=== PATIENT | female | born 1990 | race Caucasian/White ===

== ENCOUNTER 2021-03-12 22:33 | Emergency (ER) | payer MEDICAID, OTHER ==
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
[2021-03-13] MEDS ORDERED: Ibuprofen 600 MG Tab PO ONE (01:00)
--- NOTE | 2021-03-13 08:37 | CR ---
Right knee: 4 views of the right knee were obtained. Comparison: No prior knee study is available. No discrete joint effusion is seen. Small sclerotic areas are noted within the lateral knee compatible with bone islands. No discrete fracture or other abnormality is appreciated. Impression: 1. Nothing acute is definitely appreciated on right knee study. 2. If patient continues to remain symptomatic, MRI could then be considered. Diagnostic code #1
== END 2021-03-13 01:35 | disposition home or self-care (01) ==
LOC: JD.ED 22:33
DX: M25.561 Pain in right knee (principal); E66.9 Obesity, unspecified; Z68.33 Body mass index [BMI] 33.0-33.9, adult; Z72.0 Tobacco use; Z88.5 Allergy status to narcotic agent
CPT/HCPCS: 73564; 99283; A9270

== ENCOUNTER 2021-07-30 18:24 | Emergency (ER) | payer OTHER ==
--- NOTE | 2021-07-30 20:45 | EDM.PDOC ---
ED HPI GENERAL MEDICAL PROBLEM - General Chief Complaint: Skin Complaint Stated Complaint: INFECTION ON RIGHT SIDE Time Seen by Provider: 07/30/21 20:20 Source of Information: Reports: Patient, Family (Mother) History Limitations: Reports: No Limitations - History of Present Illness INITIAL COMMENTS - FREE TEXT/NARRATIVE: Mrs. Vaz is a pleasant 31-year-old woman who now presents the ED stating that she underwent a liposuction on 01/24/2021, in [place], and that one of the surgical wounds, to the lower far right side of her abdomen, has not healed. She states that the wound has had a greenish discoloration for months. She states that she did not follow up with her Surgeon, although she did call his office, and it was suggested that she be put on an antibiotic. She went to the walk-in clinic about 1 week ago, where a culture was obtained, and reportedly was negative, however, she was prescribed clindamycin, which she is still on. She states that the clindamycin has given her watery diarrhea. She has not seen her PCP about this issue. At triage, the patient was found to be hemodynamically stable, afebrile, saturating 98% on room air. She appears to be comfortable, in no acute distress. Other than the lower right abdominal wound, the patient denies having a recent fever, chills, sore throat, ear pain, nasal or sinus congestion, cough, dyspnea, chest pain, palpitations, nausea, vomiting, constipation, diarrhea, abdominal pain, urinary symptoms, recent weight gain or weight loss, recent bloody bowel movements or black bowel movements, recent joint aches, headaches, or rashes. The patient's PCP is LISSETT Reynoso. Her Line Fixer is Dr. Essie Valerio. She has not received a COVID vaccination, nor an influenza vaccination this season. Right Hip Pain Score (Numeric/FACES): 7 - Related Data Allergies Allergy/AdvReac Type Severity Reaction Status Date / Time latex Allergy Itching Verified 07/30/21 19:01 morphine Allergy Difficulty Verified 07/30/21 19:01 Breathing Home Meds: Home Meds . [No Known Home Meds] 07/30/21 [History] Past Medical History Endocrine/Metabolic History: Reports: Obesity/BMI 30+ - Past Surgical History Female Surgical History: Reports: Tubal Ligation Oncologic Surgical History: Reports: Biopsy of Breast (right, benign) Dermatological Surgical History: Reports: Plastic Surgical Reconstruction/Repair (Liposuction 01/24/2021, in [place]) Social & Family History - Tobacco Use Tobacco Use Status *Q: Never Tobacco User Years of Tobacco use: 18 Packs/Tins Daily: 0.5 Tobacco Use Comment: Started smoking 2003 - Caffeine Use Caffeine Use: Reports: Coffee, Energy Drinks - Alcohol Use Alcohol Use History: Yes Alcohol Use Frequency: Socially (occasionally to excess) - Recreational Drug Use Recreational Drug Use: No - Living Situation & Occupation Living situation: Reports: , with Spouse, with Family (5 kids) Occupation: Employed ([employer]) ED ROS GENERAL - Review of Systems Review Of Systems: Comprehensive ROS is negative, except as noted in HPI. ED EXAM, SKIN/RASH Exam: See Below Exam Limited By: No Limitations General Appearance: Alert, WD/WN, No Apparent Distress Skin: Other (There is an approximately 2.5 cm purplish oval lesion to the far lower right abdomen with an approximately 1.5 cm oval area of exposed subcutaneous tissue. The wound not appear to be infected. No obvious depth or tunneling of the wound, despite an attempt at probing with a cotton tip swab. The wo) Course - Vital Signs Last Recorded V/S: Last Vital Signs Temp 37.5 C 07/30/21 18:54 Pulse 86 07/30/21 18:54 Resp 16 07/30/21 18:54 BP 129/88 07/30/21 18:54 Pulse Ox 98 07/30/21 18:54 - Re-Assessments/Exams Free Text/Narrative Re-Assessment/Exam: 07/30/21 20:40 It is unclear why the surgical wound over the patient's right pelvic area has not yet healed, unless the patient has allowed it to become dirty, or keeps wiping off the fibroblasts. There is no suggestion of an infection, the patient states that it looks no different now than when she was seen at the walk-in clinic last week, therefore I am recommending that she discontinue the remaining clindamycin. Going forward, I recommended that she keep the wound clean with ordinary soap and water when she bathes, pat dry, then cover with a sterile nonstick dressing, daily. I will refer her to Dr. Belle for further evaluation. Dr. Belle may recommend that the patient apply a thin smear of bacitracin ointment, but I will leave that to her. 07/30/21 21:16 Notified that the patient is requesting a note to be off work. She has been dealing with this issue for 7 months, and nothing acutely changed, therefore I do not see a medical indication for note to be off work, however, that is most likely the reason why she came to the ED tonight. Departure - Departure Time of Disposition: 20:42 Disposition: Home, Self-Care 01 Condition: Good Clinical Impression: Nonhealing surgical wound - Discharge Information *PRESCRIPTION DRUG MONITORING PROGRAM REVIEWED*: Not Applicable *COPY OF PRESCRIPTION DRUG MONITORING REPORT IN PATIENT EMILY: Not Applicable Referrals: Jennifer Boothe PA-C [Primary Care Provider] - Chelsey Wagner MD [Physician] - Essie Valerio MD [Physician] - Forms: ED Department Discharge, ED Return to Work/School Form Additional Instructions: You were seen in the emergency room for a nonhealing surgical wound over to your far right abdomen. On examination, the wound does not appear to be infected. It is unclear why it has not yet healed. We recommend that you discontinue the clindamycin that you were prescribed last week. Throw the remaining capsules into the trash - do not flush them down the toilet or wash them down the drain. Keep the wound clean with ordinary soap and water when you bathe. Pat dry, then cover with a sterile nonstick dressing, daily. Please follow-up with the Surgeon Dr. Chelsey Wagner at the next available appointment, for further evaluation. If any other problems, please do not hesitate to return to the ER. Sepsis Event Note (ED) - Evaluation Sepsis Screening Result: No Definite Risk
== END 2021-07-30 21:15 | disposition home or self-care (01) ==
LOC: JD.ED 18:24
DX: T81.30XA Disruption of wound, unspecified, initial encounter (principal); E66.9 Obesity, unspecified; Z68.30 Body mass index [BMI] 30.0-30.9, adult; Z91.040 Latex allergy status; Z88.5 Allergy status to narcotic agent
CPT/HCPCS: 87070; 87075; 87077; 87186; 87205; 99283

== ENCOUNTER 2022-01-07 03:01 | Emergency (ER) | payer OTHER ==
[2022-01-07] MEDS ORDERED: Ketorolac 15 MG/ML SDV IM ONE (03:18)
== END 2022-01-07 04:15 | disposition home or self-care (01) ==
LOC: JD.ED 03:01
DX: M25.561 Pain in right knee (principal); E66.9 Obesity, unspecified; Z68.30 Body mass index [BMI] 30.0-30.9, adult; Z88.5 Allergy status to narcotic agent; Z91.040 Latex allergy status
CPT/HCPCS: 73562; 96372; 99283; J1885; 99282

== ENCOUNTER 2022-05-15 14:08 | Emergency (ER) | payer OTHER | END 2022-05-15 18:18 | disposition home or self-care (01) | LOC: JD.ED 14:08 | DX: H53.131 Sudden visual loss, right eye (principal); R51.9 Headache, unspecified; E66.9 Obesity, unspecified; Z68.32 Body mass index [BMI] 32.0-32.9, adult; Z72.0 Tobacco use; Z91.040 Latex allergy status; Z88.5 Allergy status to narcotic agent | CPT/HCPCS: 36415; 70450; 70450-26; 80053; 84443; 85025; 99284 ==

== ENCOUNTER 2022-10-04 10:12 | Emergency (ER) | payer OTHER ==
[2022-10-04] MEDS ORDERED: Ondansetron 4 MG Tab.DIS PO ONE ×2 (13:32)
== END 2022-10-04 14:10 | disposition home or self-care (01) ==
LOC: JD.ED 10:12
DX: R20.0 Anesthesia of skin (principal); R42 Dizziness and giddiness; E66.9 Obesity, unspecified; Z68.32 Body mass index [BMI] 32.0-32.9, adult; Z72.0 Tobacco use; Z91.040 Latex allergy status; Z88.5 Allergy status to narcotic agent
CPT/HCPCS: 36415; 80053; 81001; 84443; 84703; 85025; 93005; 99284; A9270; 93010

== ENCOUNTER 2023-03-07 17:30 | Emergency (ER) | payer OTHER ==
[2023-03-07] MEDS ORDERED: Ondansetron 4 MG/2 ML SDV IVPUSH ONE (17:54)
[2023-03-07] MEDS ORDERED: Sodium Chloride 0.9% 1,000 ML IV ONE (17:54)
[2023-03-07 18:28] LABS: BASOPHILS ABSOLUTE AUTO 0.05 K/mm3 (0.01-0.08); BASOPHILS PERCENT AUTO 0.5 % (0.1-1.2); EOSINOPHILS ABSOLUTE AUTO 0.28 K/mm3 (0.04-0.36); EOSINOPHILS PERCENT AUTO 2.6 (0.7-5.8); HEMATOCRIT 46.6 % (34.1-44.9); HEMOGLOBIN 15.9 gm/dl (11.2-15.7); IMMATURE GRAN ABSOLUTE AUTO 0.02 K/mm3 (0.00-0.10); IMMATURE GRAN PERCENT AUTO 0.2 % (<=1.0); LYMPHOCYTES ABSOLUTE AUTO 3.86 K/mm3 (1.18-3.74); LYMPHOCYTES PERCENT AUTO 35.3 % (19.3-51.7); MEAN CORPUSCULAR HGB CONC 34.1 g/dl (32.2-35.5); MEAN CORPUSCULAR VOLUME 96.7 fl (79.4-94.8); MEAN PLATELET VOLUME 10.6 fl (9.4-12.3); MONOCYTES ABSOLUTE AUTO 0.67 K/mm3 (0.24-0.36); MONOCYTES PERCENT AUTO 6.1 % (4.7-12.5); NEUTROPHILS ABSOLUTE AUTO 6.06 K/mm3 (1.56-6.13); NEUTROPHILS PERCENT AUTO 55.3 % (34.0-71.1); PLATELET COUNT,PLT 252 K/mm3 (182-369); RED BLOOD CELL COUNT 4.82 M/mm3 (3.98-5.22); WHITE BLOOD CELL COUNT,WBC 10.94 K/mm3 (3.98-10.04)
[2023-03-07 18:57] LABS: A/G RATIO 1.1 (1-2); ALANINE AMINOTRANSFERASE,ALT 61 U/L (14-59); ALBUMIN 4.2 g/dl (3.4-5.0); ALKALINE PHOSPHATASE 67 U/L (46-116); ANION GAP 16.9 (5-15); ASPARTATE AMNIOTRANSFERASE,AST 27 U/L (15-37); BILIRUBIN TOTAL 0.3 mg/dL (0.2-1.0); BLOOD UREA NITROGEN,BUN 16 mg/dL (7-18); BUN/CREATININE RATIO 22.9 (14-18); C-REACTIVE PROTEIN <0.2 mg/dL (<1.0); CALCIUM 9.3 mg/dL (8.5-10.1); CARBON DIOXIDE,CO2 23 mEq/L (21-32); CHLORIDE,CL 102 mEq/L (98-107); CREATININE 0.7 mg/dL (0.55-1.02); EST CRCL DRUG DOSING (CG) 98.71 mL/min; ESTIMATED GFR 117 mL/min (>60); GLUCOSE RANDOM 105 mg/dL (70-99); POTASSIUM,K 3.9 mEq/L (3.5-5.1); PROTEIN TOTAL,TP 7.9 g/dl (6.4-8.2); SODIUM,NA 138 mEq/L (136-145)
[2023-03-07] MEDS ORDERED: Iopamidol 612 MG/ML 100 ML Bottle IVPUSH ONE (19:35)
== END 2023-03-07 20:11 | disposition home or self-care (01) ==
LOC: JD.ED 17:30
DX: R10.31 Right lower quadrant pain (principal); F17.210 Nicotine dependence, cigarettes, uncomplicated; E66.9 Obesity, unspecified; Z68.30 Body mass index [BMI] 30.0-30.9, adult; Z86.16 Personal history of COVID-19; Z88.5 Allergy status to narcotic agent; Z91.040 Latex allergy status
CPT/HCPCS: 36415; 74177; 80053; 85025; 86140; 96374; 99284; J2405; J7030; Q9967

== ENCOUNTER 2023-12-04 06:09 | Emergency (ER) | payer BC, OTHER ==
[2023-12-04 06:42] LABS: BASOPHILS ABSOLUTE AUTO 0.1 K/mm3 (0.0-0.2); BASOPHILS PERCENT AUTO 0.6 % (0.0-1.0); EOSINOPHILS ABSOLUTE AUTO 0.1 K/mm3 (0.0-0.4); EOSINOPHILS PERCENT AUTO 0.6 % (0.0-6.0); HEMATOCRIT 43.8 % (37.0-47.0); HEMOGLOBIN 14.7 gm/dl (12.0-16.0); IMMATURE GRAN ABSOLUTE AUTO 0.05 K/mm3 (0.00-0.05); IMMATURE GRAN PERCENT AUTO 0.3 % (0.0-0.4); LYMPHOCYTES ABSOLUTE AUTO 2.7 K/mm3 (1.0-4.8); LYMPHOCYTES PERCENT AUTO 18.7 % (24.0-44.0); MEAN CORPUSCULAR HEMOGLOBIN 31.3 pg (28.0-32.0); MEAN CORPUSCULAR HGB CONC 33.6 g/dl (32.0-36.0); MEAN CORPUSCULAR VOLUME 93.4 fl (83.0-99.0); MEAN PLATELET VOLUME 9.5 fl (9.4-12.3); MONOCYTES ABSOLUTE AUTO 0.8 K/mm3 (0.0-0.8); MONOCYTES PERCENT AUTO 5.4 % (0.0-8.0); NEUTROPHILS ABSOLUTE AUTO 10.7 K/mm3 (1.8-7.7); NEUTROPHILS PERCENT AUTO 74.4 % (41.0-71.0); PLATELET COUNT,PLT 290 K/mm3 (150-400); RED BLOOD CELL COUNT 4.69 M/mm3 (4.10-5.30); WHITE BLOOD CELL COUNT,WBC 14.38 K/mm3 (3.9-11.3)
[2023-12-04] MEDS: Ketorolac 30 MG/ML SDV IVPUSH ONE (06:46)
[2023-12-04] MEDS: Sodium Chloride 0.9% 10 ML Syringe FLUSH PRN (06:46)
[2023-12-04 06:54] LABS: APPEARANCE,URINE SLT CLOUDY (Clear); BILIRUBIN,URINE NEGATIVE (Negative); COLOR,URINE YELLOW (Yellow); GLUCOSE,URINE NEGATIVE (Negative); KETONES,URINE NEGATIVE (Negative); LEUKOCYTE ESTERASE,URINE 1+ (Negative); NITRITE,URINE NEGATIVE (Negative); OCCULT BLOOD,URINE TRACE-INTACT (Negative); PROTEIN,URINE TRACE (Negative); UROBILINOGEN,URINE 0.2 (0.2-1.0)
[2023-12-04 07:05] LABS: BACTERIA,URINE FEW /hpf (FEW); MUCUS,URINE RARE /hpf (FEW); WBC,URINE 20-30 /hpf (0-5)
[2023-12-04 07:08] LABS: A/G RATIO 1.1 (1-2); ALBUMIN 3.9 g/dl (3.4-5.0); ANION GAP 13.7 (5-15); BILIRUBIN TOTAL 0.6 mg/dL (0.2-1.0); BUN/CREATININE RATIO 6.3 (14-18); CALCIUM 9.4 mg/dL (8.5-10.1); CREATININE 0.8 mg/dL (0.55-1.02); EST CRCL DRUG DOSING (CG) 81.97 mL/min; MAGNESIUM 1.6 mg/dL (1.8-2.4); POTASSIUM,K 3.7 mEq/L (3.5-5.1); PROTEIN TOTAL,TP 7.6 g/dl (6.4-8.2)
== END 2023-12-04 09:08 | disposition home or self-care (01) ==
LOC: JD.ED 06:09
DX: N39.0 Urinary tract infection, site not specified (principal); E66.9 Obesity, unspecified; Z68.30 Body mass index [BMI] 30.0-30.9, adult; Z86.16 Personal history of COVID-19; Z91.040 Latex allergy status; Z88.5 Allergy status to narcotic agent; Z79.899 Other long term (current) drug therapy
CPT/HCPCS: 36415; 74176; 80053; 81001; 81003; 83735; 85025; 87086; 87088; 87186; 96374; 99284; J1885; J3490

== ENCOUNTER 2025-01-04 22:17 | Emergency (ER) | payer SELFPAY ==
[2025-01-04 22:58] LABS: BASOPHILS ABSOLUTE AUTO 0.1 K/mm3 (0.0-0.2); BASOPHILS PERCENT AUTO 0.5 % (0.0-1.0); EOSINOPHILS ABSOLUTE AUTO 0.2 K/mm3 (0.0-0.4); EOSINOPHILS PERCENT AUTO 1.7 % (0.0-6.0); HEMATOCRIT 42.4 % (37.0-47.0); HEMOGLOBIN 14.4 gm/dl (12.0-16.0); IMMATURE GRAN ABSOLUTE AUTO 0.02 K/mm3 (0.00-0.05); IMMATURE GRAN PERCENT AUTO 0.2 % (0.0-0.4); LYMPHOCYTES ABSOLUTE AUTO 3.5 K/mm3 (1.0-4.8); LYMPHOCYTES PERCENT AUTO 36.4 % (24.0-44.0); MEAN CORPUSCULAR HEMOGLOBIN 31.6 pg (28.0-32.0); MEAN PLATELET VOLUME 9.7 fl (9.4-12.3); MONOCYTES ABSOLUTE AUTO 0.5 K/mm3 (0.0-0.8); MONOCYTES PERCENT AUTO 5.1 % (0.0-8.0); NEUTROPHILS ABSOLUTE AUTO 5.4 K/mm3 (1.8-7.7); NEUTROPHILS PERCENT AUTO 56.1 % (41.0-71.0); PLATELET COUNT,PLT 288 K/mm3 (150-400); RED BLOOD CELL COUNT 4.56 M/mm3 (4.10-5.30); WHITE BLOOD CELL COUNT,WBC 9.63 K/mm3 (3.9-11.3)
[2025-01-04 23:22] LABS: A/G RATIO 1.1 (1-2); ALANINE AMINOTRANSFERASE,ALT 24 U/L (14-59); ALKALINE PHOSPHATASE 60 U/L (46-116); ANION GAP 14.3 (5-15); ASPARTATE AMNIOTRANSFERASE,AST 15 U/L (15-37); BILIRUBIN TOTAL 0.4 mg/dL (0.2-1.0); BLOOD UREA NITROGEN,BUN 12 mg/dL (7-18); CALCIUM 9.5 mg/dL (8.5-10.1); CARBON DIOXIDE,CO2 26 mEq/L (21-32); CHLORIDE,CL 104 mEq/L (98-107); CREATININE 0.8 mg/dL (0.55-1.02); ESTIMATED GFR 98 mL/min (>60); GLUCOSE RANDOM 105 mg/dL (70-99); POTASSIUM,K 3.3 mEq/L (3.5-5.1); PROTEIN TOTAL,TP 7.6 g/dl (6.4-8.2); SODIUM,NA 141 mEq/L (136-145)
[2025-01-04] MEDS: Ondansetron 4 MG Tab.DIS PO ONE (23:28)
[2025-01-04 23:35] LABS: TROPONIN I HIGH SENSITIVITY < 4 pg/mL (<=51)
[2025-01-05] MEDS: Promethazine 25 MG Tab PO ONE (00:07)
[2025-01-05] MEDS: diphenhydrAMINE 50 MG Cap PO ONE (00:07)
== END 2025-01-05 00:23 | disposition home or self-care (01) ==
LOC: JD.ED 22:17
DX: F41.9 Anxiety disorder, unspecified (principal); R11.2 Nausea with vomiting, unspecified; Z91.040 Latex allergy status
CPT/HCPCS: 36415; 71046; 80053; 84484; 85025; 93005; 99285; A9270; Q0163; Q0169

== ENCOUNTER 2025-03-31 07:46 | Emergency (ER) | payer SELFPAY ==
[2025-03-31 08:12] LABS: BASOPHILS ABSOLUTE AUTO 0.1 K/mm3 (0.0-0.2); BASOPHILS PERCENT AUTO 1.0 % (0.0-1.0); EOSINOPHILS ABSOLUTE AUTO 0.2 K/mm3 (0.0-0.4); EOSINOPHILS PERCENT AUTO 2.1 % (0.0-6.0); IMMATURE GRAN ABSOLUTE AUTO 0.01 K/mm3 (0.00-0.05); IMMATURE GRAN PERCENT AUTO 0.1 % (0.0-0.4); LYMPHOCYTES ABSOLUTE AUTO 3.2 K/mm3 (1.0-4.8); LYMPHOCYTES PERCENT AUTO 43.2 % (24.0-44.0); MEAN PLATELET VOLUME 9.9 fl (9.4-12.3); MONOCYTES ABSOLUTE AUTO 0.4 K/mm3 (0.0-0.8); MONOCYTES PERCENT AUTO 5.2 % (0.0-8.0); NEUTROPHILS ABSOLUTE AUTO 3.5 K/mm3 (1.8-7.7); NEUTROPHILS PERCENT AUTO 48.4 % (41.0-71.0); NRBC ABSOLUTE 0.00 (0.00-0.02); NRBC PERCENT 0.0 % (0.0-0.2); PLATELET COUNT,PLT 292 K/mm3 (150-400); RED BLOOD CELL COUNT 4.54 M/mm3 (4.10-5.30); WHITE BLOOD CELL COUNT,WBC 7.30 K/mm3 (3.9-11.3)
[2025-03-31 08:53] LABS: A/G RATIO 1.1 (1-2); ALANINE AMINOTRANSFERASE,ALT 20.0 U/L (14-59); ASPARTATE AMNIOTRANSFERASE,AST 14.0 U/L (15-37); BILIRUBIN TOTAL 1.0 mg/dL (0.2-1.0); BLOOD UREA NITROGEN,BUN 11.0 mg/dL (7-18); CARBON DIOXIDE,CO2 25.0 mEq/L (21-32); CHLORIDE,CL 104.0 mEq/L (98-107); CREATINE KINASE,CK 87.0 U/L (26-192); CREATININE 0.7 mg/dL (0.55-1.02); EST CRCL DRUG DOSING (CG) 92.79 mL/min; ESTIMATED GFR 116.0 mL/min (>60); GLUCOSE RANDOM 102.0 mg/dL (70-99); POTASSIUM,K 3.5 mEq/L (3.5-5.1); PROTEIN TOTAL,TP 7.7 g/dl (6.4-8.2); SODIUM,NA 139.0 mEq/L (136-145)
[2025-03-31 10:13] LABS: BUPRENORPHINE SCREEN,URINE NEGATIVE (CUTOFF=10); METHADONE SCREEN, URINE NEGATIVE (CUTOFF=200); METHAMPHETAMINES SCREEN, URINE NEGATIVE (CUTOFF=500); OXYCODONE SCREEN,URINE NEGATIVE (CUT0FF=100); THC SCREEN,URINE 20 NG/ML NEGATIVE (CUTOFF=50)
[2025-03-31 10:20] LABS: AMPHETAMINES SCREEN, URINE NEGATIVE (CUTOFF=500)
== END 2025-03-31 09:45 | disposition home or self-care (01) ==
LOC: JD.ED 07:46
DX: R07.89 Other chest pain (principal); F43.22 Adjustment disorder with anxiety; Z91.040 Latex allergy status; Z88.5 Allergy status to narcotic agent; Z79.899 Other long term (current) drug therapy; Z86.16 Personal history of COVID-19
CPT/HCPCS: 36415; 71045; 80053; 80306; 82550; 83690; 83735; 84484; 84703; 85025; 93005; 99285; A9270